=== PATIENT | female | born 1975 | race Two or more races ===

== ENCOUNTER → 2017-11-28 | Outpatient (CLI) | payer MEDICAID | LOC: FIMAGING 09:06 | PROVIDERS: ATTEND Family Medicine | DX: Z12.31 Encounter for screening mammogram for malignant neoplasm of breast (principal) ==

== ENCOUNTER → 2018-12-10 | Outpatient (CLI) | payer MEDICAID | LOC: FIMAGING 10:12 | PROVIDERS: ATTEND Family Medicine | DX: Z12.31 Encounter for screening mammogram for malignant neoplasm of breast (principal) ==